=== PATIENT | female | born 2000 | race Caucasian/White ===

== ENCOUNTER 2024-04-05 15:58 | Emergency (ER) | payer OTHER, SELFPAY ==
--- NOTE | ~2024-04-05 | XR_ITS ---
EXAMINATION: XR CHEST CLINICAL INFORMATION: Chest pain COMPARISON: None available. TECHNIQUE: 2 views of the chest were obtained. FINDINGS: No significant abnormality is noted involving the heart, lungs, mediastinum, bony thorax or soft tissues. XR/XR chest 2V IMPRESSION: Unremarkable examination. Electronically signed by: Yobani العراقي MD 04/05/2024 08:15 PM EDT RP
--- NOTE | 2024-04-05 16:01 | ECG_ITS ---
Test Reason : CHEST PAIN Blood Pressure : / mmHG Vent. Rate : 082 BPM Atrial Rate : 082 BPM P-R Int : 152 ms QRS Dur : 086 ms QT Int : 390 ms P-R-T Axes : 048 021 055 degrees QTc Int : 455 ms Poor data quality, interpretation may be adversely affected Sinus rhythm with sinus arrhythmia Abnormal ECG When compared with ECG of 16-OCT-2017 13:46, No significant change was found Referred By: Rhonda Leal Electronically Signed By:ARMIDA HASSAN
--- NOTE | 2024-04-05 16:08 | ED.GENADULT ---
HPI - General Adult General Chief complaint: General Medical Stated complaint: numbness in legs chest pain Time Seen by Provider: 04/05/24 21:34 Source: patient Mode of arrival: ambulatory Limitations: no limitations History of Present Illness ED Provider: Dr. Lomas HPI narrative: patient is 9 weeks post after a csection who presents with a list of complaints including weakness, back pain, leg weakness, not eating, not drinking, not sleeping. Patient states she is a single mom and raising the baby all by herself. She feels sad at times, denies suicidal or homicidal ideation. patient is not having any fever or weight loss Severity: mild Related Data Allergies Allergy/AdvReac Type Severity Reaction Status Date / Time BABY POWDER Allergy Unknown RASH Uncoded 04/05/24 16:13 Review of Systems Review of Systems: Yes all other systems are reviewed and are negative Neurologic: Denies Sensory deficit (Neuro) [facility] Social History Social History Advance Directives: No Advance Directives Information Provided: No Do you have a plan to hurt others: No Plan Physical Exam ED Vital Signs: Vital Signs - 24 hr 04/05/24 16:09 04/05/24 19:04 Temperature 98.7 F 97.9 F Pulse Rate 91 75 Respiratory Rate 18 16 Blood Pressure 116/59 L 155/85 H Pulse Oximetry 97 98 Oxygen Delivery Method Room Air Room Air BMI result Body Mass Index 29.6 Const Other: flat affect appears sad General: healthy appearing Nutritional Appearance: average body habitus Orientation/consciousness: oriented to person and patient oriented x3 Limitations: no limitations HENMT Head: Yes normal to inspection Ears: external ears normal General nose exam: Normal external nose present Mouth: Normal oral and palatal mucosa present and oropharynx normal Throat: Yes posterior oropharynx normal Eyes General: appearance normal, both eyes and all related structures Neck Neck: Yes normal visual inspection Chest Chest palpation & inspection: normal inspection of the chest Resp Auscultation: clear to auscultation bilaterally Cardio Jugular venous distension: no JVD Rate: regular rate Rhythm: regular rhythm Heart sounds: S1 normal heart sound present and S2 normal heart sound present GI Inspection: Yes normal to inspection Palpation (GI): Soft to palpation, nontender and No hepatosplenomegaly present Auscultation: normal bowel sounds General: Yes no CVA tenderness Back/Spine/Pelvis Back: no CVA tenderness Skin General skin exam: no rashes or lesions noted Neuro General: oriented to person and patient oriented x3 Cranial nerves: Yes CN's II-XII intact bilaterally Motor exam (neuro): 5/5 motor strength present throughout Sensory Exam: No Sensory deficit (Neuro) Extrem General: Yes normal to inspection Psych Other: flat affect appears sad Course Course Course Narrative: RME performed by Rhonda Leal PA-C. Patient is a 23 year old assigned female at presenting to the emergency department with back pain, chest pain, and numbness/tingling in legs. Detailed physical exam and review of systems are deferred to the duplex trimmer. EKG, labs, imaging, and swabs ordered. Patient placed back in the waiting room pending room availability and results. Reevaluation(s) Reevaluation #1: labs normal, physical exam normal, slight bump in renal function but in normal limits. Patient denies suicidal or homicidal ideation will give her a referral list Time: 21:59 Medical Decision Making Differential Diagnosis Differential Diagnoses: The differential diagnosis associated with the presentation includes (dehydration, depression, post depression, weakness) Admission/Observation Consideration of admission/observation: Escalation of care including admission/observation considered (upon arrival patient considered for admission) Lab Data 04/05/24 16:31 04/05/24 16:31 Labs: Lab Results 04/05/24 04/05/24 Range/Units 16:26 16:31 WBC 6.7 (4.8-10.8) X10*3/uL RBC 4.90 (4.20-5.50) X10*6/uL Hgb 12.0 (12.0-16.0) g/dl Hct 37.1 (37.0-47.0) % MCV 75.7 L (80.0-98.0) fL MCH 24.5 L (27.0-33.0) pg MCHC 32.3 (31.0-35.0) g/dl RDW 12.6 (11.0-16.0) % Plt Count 278 (160-400) X10*3/uL MPV 10.7 (9.4-12.3) fL Immature Gran % (Auto) 0.3 (0.0-0.4) % Neut % (Auto) 56.3 (45-73) % Lymph % (Auto) 37.0 (20-40) % Wake % (Auto) 5.0 (2-11) % Eos % (Auto) 0.9 (0-4) % Baso % (Auto) 0.5 (0-2) % Lymph # (Auto) 2.5 (1.2-4.9) X10*3/uL Wake # (Auto) 0.3 (0.1-1.2) X10*3/uL Eos # (Auto) 0.1 (0.0-0.4) X10*3/uL Baso # (Auto) 0.0 (0.0-0.2) X10*3/uL Abs Immat Gran (auto) 0.02 (0.00-0.03) X10*3/uL Absolute Neuts (auto) 3.8 (2.0-8.3) x10*3/uL Absolute Nucleated RBC 0.000 (0.0-0.012) X10*3/uL Nucleated RBC % (auto) 0.0 (0.0-0.2) /100WBC Sodium 143 (135-145) mmol/L Potassium 3.9 (3.3-5.1) mmol/L Chloride 112 H (96-108) mmol/L Carbon Dioxide 24 (22-29) mmol/L Anion Gap 11 L (12-20) BUN 11 (9-16) mg/dL Creatinine 0.78 (0.5-1.4) mg/dL Estim Creat Clear Calc 120.8 Estimated GFR > 60 Random Glucose 88 (60-115) mg/dL Calcium 9.3 (8.4-10.2) mg/dL Magnesium 2.0 (1.6-2.6) mg/dL Total Bilirubin 0.3 (0.0-1.0) mg/dL AST 14 (5-31) U/L ALT 9 (0-31) U/L Alkaline Phosphatase 72 (39-117) U/L Troponin I High Sens < 2.7 (<3.5-17.0) ng/L Total Protein 7.2 (6.5-8.0) g/dL Albumin 4.5 (3.5-5.0) g/dL Beta HCG, Quant < 2 mIU/mL Influenza Type A (PCR) NEGATIVE (Negative) Influenza Type B (PCR) NEGATIVE (Negative) RSV RNA Qual (PCR) NEGATIVE (Negative) SARS-CoV-2 RNA (RT-PCR) NEGATIVE (Negative) Independent Interpretation I performed an independent interpretation of an: EKG (sinus 80, no st or twave changes) and Plain X-Ray (cxr: no infiltrate) Prescription Management I considered prescription management with: Antibiotic (no evidence of bacterial infection, will not give abx at this time) Social Determinants Patient?s care significantly limited by Social Determinants of Health including: Low income and Problems related to primary support group Discharge Plan Discharge Clinical Impression: Weakness, Mild depression, Dehydration Patient Disposition: Home, Self-Care Instructions: Depression (DC), Dehydration (ED), Weakness (ED) Additional Instructions: please take list of therapist from the nurse and start calling Referrals: [facility] – [place] [facility] [Provider Group] - 2 days Print Language: Sami
[2024-04-05 16:09] VITALS: BP 116/59; PULSE 91; RESP 18; TEMP 37.1; O2SAT 97; BMI 29.6
[2024-04-05 16:49] LABS: MANUAL DIFF FLAG NO
[2024-04-05 16:51] LABS: Basophils Percent Auto 0.5 % (0-2); Eosinophils Absolute Auto 0.1 X10*3/uL (0.0-0.4); Eosinophils Percent Auto 0.9 % (0-4); Hematocrit 37.1 % (37.0-47.0); Imm Gran Abs Auto 0.02 X10*3/uL (0.00-0.03); Imm Gran Pct Auto 0.3 % (0.0-0.4); Lymphocytes Absolute Auto 2.5 X10*3/uL (1.2-4.9); Mean Corpuscular HGB Conc 32.3 g/dl (31.0-35.0); Mean Corpuscular Hemoglobin 24.5 pg (27.0-33.0); Mean Corpuscular Volume 75.7 fL (80.0-98.0); Mean Platelet Volume 10.7 fL (9.4-12.3); Monocytes Absolute Auto 0.3 X10*3/uL (0.1-1.2); Neutrophils Absolute Auto 3.8 x10*3/uL (2.0-8.3); Neutrophils Percent Auto 56.3 % (45-73); Platelet Count 278 X10*3/uL (160-400); Red Cell Distribution Width 12.6 % (11.0-16.0); White Blood Count 6.7 X10*3/uL (4.8-10.8)
[2024-04-05 17:09] LABS: Alanine Aminotransferase 9 U/L (0-31); Albumin Level 4.5 g/dL (3.5-5.0); Alkaline Phosphatase 72 U/L (39-117); Anion Gap 11 (12-20); Aspartate Amino Transferase 14 U/L (5-31); Bilirubin Total 0.3 mg/dL (0.0-1.0); Blood Urea Nitrogen 11 mg/dL (9-16); Calcium 9.3 mg/dL (8.4-10.2); Carbon Dioxide 24 mmol/L (22-29); Chloride 112 mmol/L (96-108); Creatinine Clr Calc Pharmacy 120.8; Estimated Glomerular Filt Rate > 60; Glucose Random 88 mg/dL (60-115); Potassium 3.9 mmol/L (3.3-5.1); Sodium 143 mmol/L (135-145); Total Protein 7.2 g/dL (6.5-8.0)
[2024-04-05 17:16] LABS: HCG Quantitative < 2 mIU/mL; Troponin-I High Sensitivity < 2.7 ng/L (<3.5-17.0)
[2024-04-05 17:26] LABS: Influenza A PCR NEGATIVE (Negative); Influenza B PCR NEGATIVE (Negative); Resp Syncy Virus RNA Qual PCR NEGATIVE (Negative); SARS COV2 PCR INHOUSE NEGATIVE (Negative)
[2024-04-05 19:04] VITALS: BP 155/85; PULSE 75; RESP 16; TEMP 36.6; O2SAT 98
[2024-04-05 22:35] VITALS: BP 155/85; PULSE 75; RESP 16; TEMP 36.6; O2SAT 98
== END 2024-04-05 22:36 | disposition home or self-care (01) ==
PROVIDERS: Physician Assistant Medical; Emergency Provider Emergency Medicine
DX: R07.89 Other chest pain (principal); F33.1 Major depressive disorder, recurrent, moderate; R20.0 Anesthesia of skin; M54.50 Low back pain, unspecified; E86.0 Dehydration; Z03.818 Encounter for observation for suspected exposure to other biological agents ruled out; Z79.899 Other long term (current) drug therapy
CPT/HCPCS: 0241U; 36415; 71046; 80053; 83735; 84484; 84702; 85025; 93005; 99283